=== PATIENT | male | born 1960 | race American Indian/Alaskan Native ===

== ENCOUNTER 2016-08-01 07:15 | Outpatient (CLI) | payer OTHER ==
--- NOTE | 2016-08-01 08:44 | Magnetic Resonance Report ---
MRI of the lumbar spine. Procedure: Sagittal T1-weighted, T2-weighted, inversion recovery images, and axial T1 and T2-weighted images recent study. Findings: The L1-2 through L45 levels are unremarkable. At L5-S1, there is a prominent broad-based disc bulge, slightly eccentric to the left with marked effacement of the thecal sac resulting in central canal stenosis. The AP diameter of the canal at this level measures 7.7 mm. The conus appears normal. No significant bony abnormalities are seen. Impression: Severe disc bulge at L5-S1 with central canal stenosis.
== END 2016-08-01 07:16 | disposition home or self-care (01) ==
LOC: MRI 07:15
PROVIDERS: ATTEND Orthopaedic Surgery
DX: M48.07 Spinal stenosis, lumbosacral region (principal)
CPT/HCPCS: 72148

== ENCOUNTER 2017-04-06 16:34 | Outpatient (CLI) | payer OTHER ==
--- NOTE | 2017-04-09 10:17 | Magnetic Resonance Report ---
MRI LUMBAR SPINE WITH AND WITHOUT CONTRAST INDICATION: Disc displacement. Lumbar spine surgery on 12/05/2016. COMPARISON: 08/01/2016 lumbar spine MRI. FINDINGS: Multiplanar and multisequence MRI of the lumbar spine performed utilizing 15 ml Multihance intravenously and demonstrates interval posterior decompression laminectomy at L5-S1 with extensive diffuse soft tissue enhancement in the surgical bed and posterior lower lumbar soft tissues and subcutaneous plane as on sagittal series 8, greatest on image 8 that also demonstrates few small susceptibility artifacts at L5-S1 level posteriorly, possibly surgical clips. This enhancement also appears to extend intraspinal/posterior epidural with mild effacement of the thecal sac posteriorly, right more than left as on axial series 7, images 6-10. Bilateral facet arthropathy again noted. Some entrapment of bilateral S1 traversing nerves at this level not entirely excluded. No discrete abscess identified. Remainder lumbar levels appear stable with normal alignment and marrow signal except for stable 1 cm Schmorl's node along the inferior endplate of L3 with mild surrounding edema. Preserved disc heights with mild L3-4 disc desiccation again noted. Mild bilateral neural foraminal narrowing/undercutting at L5-S1 may also again be present with mild diffuse disc bulge noted predominantly in the ventral epidural space. Non-aneurysmal abdominal aorta. Normal conus medullaris, terminating behind L1-L2. CONCLUSION: 1. Interval L5-S1 posterior laminectomy/decompression. No discrete abscess noted, though diffuse soft tissue enhancement at the surgical bed and posterior lumbar soft tissues identified. Differential considerations include postsurgical changes versus subtle infection or even fibrosis developing with extension into the posterior epidural space and impression/effacement upon the thecal sac. Please correlate. 2. Few other findings, including L3-L4 degenerative changes, as above. Thank you for the opportunity to participate in this patient's care.
== END 2017-04-06 16:35 | disposition home or self-care (01) ==
LOC: MRI 16:34
DX: M51.26 Other intervertebral disc displacement, lumbar region (principal); M47.896 Other spondylosis, lumbar region; M12.88 Other specific arthropathies, not elsewhere classified, other specified site; G57.92 Unspecified mononeuropathy of left lower limb; Z98.890 Other specified postprocedural states
CPT/HCPCS: 72158; A9577

== ENCOUNTER 2017-05-07 16:38 | Outpatient (CLI) | payer OTHER ==
--- NOTE | 2017-05-08 09:07 | Magnetic Resonance Report ---
MRI CERVICAL SPINE WITHOUT AND WITH CONTRAST: 05/07/17 CLINICAL: Neck pain. TECHNIQUE: Sagittal T1,T2 and STIR and axial gradient T2* sequences plus sagittal and axial postcontrast T1 fat sat sequences on a 1.5 Gogo magnet. 12 cc of Multihance was injected intravenously for the contrast portion of the exam and consent was obtained prior to administration of contrast. FINDINGS:Normal vertebral body alignment through T3. Decreased height of the C7 vertebral body with elevation of the inferior endplate.. The rest of the bodies are normal in height. Normal marrow signal with no marrow edema or fracture. Decreased T2 disc signal at all levels. The cerebellar tonsils are normal position. C2-3: Moderate-sized broad-based central and right paracentral disc-osteophyte extends into the right neural foramen. Moderate right neural foraminal narrowing. Moderate effacement of the thecal sac and mild spinal canal stenosis. The spinal cord is slightly flattened but has normal signal. C3-4:The disc is intact. However, a central posterior osteophyte produces mild narrowing of the spinal canal. Slight flattening of the cord and left paramedian focal T2 hyperintense signal on both sagittal and axial sequences. These areas of T2 hyperintense signal demonstrate no enhancement. Marked left facet hypertrophy and severe left neural foraminal narrowing. C4-5: Intact disc. Marked left facet hypertrophy and severe left neural foraminal narrowing. C5-6:Intact disc. Marked left facet hypertrophy, left foraminal osteophyte and moderately severe left neural foraminal narrowing. C6-7:Mild circumferential disc bulge with small anterior and posterior osteophytes. Moderate left facet hypertrophy moderate left neural foraminal narrowing. C7-T1:Mild circumferential disc bulge, moderate left facet hypertrophy, uncal osteophytes and moderate bilateral neural foraminal narrowing. IMPRESSION: 1. Spinal canal stenosis at C2-3 and C3-4 with evidence of myelomalacia at the C3-4 level. 2. Pronounced left facet hypertrophy and significant neural foraminal stenosis on the left from C2-3 through C7-T1. 3. No enhancing lesion of the cord and no abnormal enhancement of any structures.
== END 2017-05-07 16:39 | disposition home or self-care (01) ==
LOC: MRI 16:38
PROVIDERS: ATTEND Internal Medicine
DX: M48.02 Spinal stenosis, cervical region (principal); R93.8 Abnormal findings on diagnostic imaging of other specified body structures
CPT/HCPCS: 72156; A9577

== ENCOUNTER 2018-07-19 09:21 | Outpatient (CLI) | payer OTHER ==
--- NOTE | 2018-07-20 19:45 | Magnetic Resonance Report ---
FINAL REPORT EXAM: MR LUMBAR SPINE WO CON HISTORY: SPONDYLOSIS OF LUMBAR REGION WITHOUT MYELOPATHY OR RADICULOPATHYoutpatient COMPARISON: None available. TECHNIQUE: Several multiplanar noncontrast sequences were obtained. FINDINGS: Note: The images do not cross reference with each other. Subsequently, this markedly limits evaluatio n and accuracy of describing the levels on the axial images. Lumbar vertebral body heights are preserved. [id number] loss of disc height L2-L3 through L5-S1 levels. Normal lordotic curvature. Mild heterogeneity of normal signal intensity within physiologic limits. Prominent diffuse epidural lipomatosis throughout the majority lumbar spine contributing to mild to m oderate deformity of thecal sac posteriorly. Prior decompressive laminectomy at the L5-S1 level. Severe facet changes at that level. There is prom inence of posterior epidural fat this region as well as prominent broad-based disc bulge causing lindsay re deformity of the thecal sac despite decompressive laminectomy. Severe bilateral foraminal narrowin g due to endplate osteophyte, facet changes and broad-based disc bulge. L4-L5 level, mild broad-based disc bulge. Moderate severe facet changes. Mild canal stenosis. Moderat e is severe bilateral foraminal narrowing. Partial impingement upon the exiting L4 nerve roots. L3-L4 level, moderate severe facet changes. Mild broad-based disc bulge. Mild canal stenosis. Moderat e severe foraminal narrowing. Impingement on the exiting L3 nerve roots. L2-L3 level, [id number] bilateral facet changes. Mild broad-based disc bulge. Minimal canal winter nosis. Mild bilateral foraminal narrowing. L1-L2 level, mild facet changes. Canal and foramina are patent. Paraspinal musculature is grossly unremarkable. IMPRESSION: Prior decompressive laminectomy at the L5-S1 level. Persistent broad-based disc bulge and prominence of posterior epidural fat at that level causing severe deformity of the thecal sac despite decompress osmani laminectomy. Severe bilateral foraminal narrowing at that level. Impingement upon the exiting L5 nerve roots. Moderate severe foraminal narrowing L3-L4-L4-L5 levels. There impinge upon the exiting nerve roots wh ich would contribute to bilateral radiculopathy. Prominence of posterior epidural fat contributing to mild to moderate deformity of thecal sac at lindsay ral levels.
== END 2018-07-19 09:22 | disposition home or self-care (01) ==
LOC: MRI 09:21
DX: M51.26 Other intervertebral disc displacement, lumbar region (principal); M48.061 Spinal stenosis, lumbar region without neurogenic claudication; E78.00 Pure hypercholesterolemia, unspecified; I10 Essential (primary) hypertension; J45.909 Unspecified asthma, uncomplicated; M19.90 Unspecified osteoarthritis, unspecified site; E11.9 Type 2 diabetes mellitus without complications
CPT/HCPCS: 72148

== ENCOUNTER 2019-02-19 10:01 | Outpatient (CLI) | payer OTHER ==
--- NOTE | 2019-02-19 12:25 | Magnetic Resonance Report ---
MRI LUMBAR SPINE WITHOUT CONTRAST INDICATION / CLINICAL INFORMATION: radiculopathy lumbar. TECHNIQUE: Multisequence, multiplanar images of the lumbar spine were obtained. COMPARISON: The study is compared to the previous MRI of 07/19/2018. FINDINGS: ALIGNMENT: Normal lumbar lordosis without significant scoliosis. VERTEBRAE:There are milder chronic at. The endplate changes at L5-S1. There is no significant edema i nvolving the cervical vertebral bodies. Milder endplate findings are noted at L3-4. VISUALIZED SPINAL CORD: No significant abnormality. [id number] ANALYSIS: L1-2: No significant abnormality. L2-3: There is milder right sided at disc bulge with mild right neural foraminal narrowing. There is no significant spinal stenosis. L3-4: The broad-based central disc bulge and facet joint hypertrophy result in mild spinal stenosis a t. The findings appear to correlate with the previous study at. The facet joint hypertrophy is greate r on the right with mild encroachment on the exiting right L3 nerve root sheath. Milder narrowing is seen on the left. L4-5: The central disc bulge at L4-5 mildly flattens the ventral thecal sac The facet joint hypertrop hy contributes to mild foraminal narrowing bilaterally. L5-S1: The patient remains status post decompressive laminectomy at this segment. There has been inte rval regression of the broad-based central disc protrusion or possibly discectomy at this level from the prior exam at. There is less effacement of the lateral recesses and thecal sac. However, the spon dylosis and prominent residual facet joint arthropathy result in marked foraminal narrowing with cont inued encroachment on the exiting L5 nerve root sheaths bilaterally. PARASPINAL SOFT TISSUES: No significant abnormality. ADDITIONAL FINDINGS: None. IMPRESSION: 1. There is continued decompressive laminectomy at L5-S1 with interval regression or resection of the disc protrusion from 07/19/2018 as detailed above. However, there is continued significant neural fora twila narrowing with encroachment on the exiting L5 nerve root sheaths bilaterally. 2. There are continued a disc bulges and facet joint hypertrophy at L3-4 and L4-5 as described. Signer Name: Kaushik Martinez MD Signed: 02/19/2019 12:20 PM Workstation Name: [id number]
== END 2019-02-19 10:02 | disposition home or self-care (01) ==
LOC: MRI 10:01
PROVIDERS: ATTEND Anesthesiology
DX: M51.26 Other intervertebral disc displacement, lumbar region (principal); M48.061 Spinal stenosis, lumbar region without neurogenic claudication; E78.00 Pure hypercholesterolemia, unspecified; I10 Essential (primary) hypertension; J45.909 Unspecified asthma, uncomplicated; E11.9 Type 2 diabetes mellitus without complications
CPT/HCPCS: 72148